=== PATIENT | male | born 1965 | race Caucasian/White ===

== ENCOUNTER 2018-01-03 15:27 | Emergency (ER) | payer SELFPAY ==
[~2018-01-03] VITALS: Ht 185.4 cm; Wt 64.0 kg
[2018-01-03 15:38] VITALS: BP 135/98; PULSE 96; RESP 21; TEMP 98.4; O2SAT 98
[2018-01-03] MEDS ORDERED: NAPR500 PO (15:48)
[2018-01-03] MEDS ORDERED: ACYC800T PO (15:48)
--- NOTE | 2018-01-03 15:51 | PD ---
HPI Chief Complaint: Skin Problem Time Seen by Provider: 15:46 Travel History International Travel<30 days: No Contact w/Intl Traveler<30days: No Traveled to known affect area: No History of Present Illness HPI Patient comes to the emergency department plan of a burning painful rash that began 5 days ago on his chest and back. Patient reports rash started off a small bumps and scabs over. Patient reports subjective fevers. Denies anything making symptoms better or worse. Patient denies doing anything for this prior to the emergency department. Denies ever having similar rash. Denies being or anyone with similar. Severity mild. PFSH Past Medical History Medical History: Denies Significant Hx Social History Tobacco Use: No Substance Use: No Allergies-Medications (Allergen,Severity, Reaction): Coded Allergies: Penicillins (Verified Allergy, Severe, hives, 01/03/18) Reported Meds & Prescriptions Reported Meds & Active Scripts Active Naprosyn (Naproxen) 500 Mg Tab 500 Mg PO Q12HR PRN 7 Days Acyclovir 800 Mg Tab 800 Mg PO 5 TIMES A DAY 7 Days Review of Systems Except as stated in HPI: all other systems reviewed are Neg Physical Exam Narrative GENERAL: Well-developed, well nourished, in no acute distress, and non-ill appearing. SKIN: Patient has rash consistent with shingles over the right upper thoracic cavity dermatomes T3 and T4. No signs of secondary infection. Rash does not cross the midline. HEAD: Atraumatic. Normocephalic. EYES: Pupils equal and round. EOMI. No scleral icterus. No injection or drainage. ENT: No nasal bleeding or discharge. Mucous membranes pink and moist. NECK: Trachea midline. Supple. No nuclear rigidity. RESPIRATORY: No accessory muscle use. No respiratory distress. MUSCULOSKELETAL: No obvious deformities. No clubbing. No cyanosis. No edema. Full range of motion. NEUROLOGICAL: Awake and alert. No obvious cranial nerve deficits. Motor grossly within normal limits. Normal speech. PSYCHIATRIC: Appropriate mood and affect; insight and judgment normal. Data Data Last Documented VS Vital Signs Date Time Temp Pulse Resp B/P (MAP) Pulse Ox O2 Delivery O2 Flow Rate FiO2 01/03/18 15:38 98.4 96 21 135/98 (110) 98 Orders Orders Ed Discharge Order (01/03/18 15:48) [facility] Medical Decision Making Medical Screen Exam Complete: Yes Emergency Medical Condition: Yes Differential Diagnosis Shingles, cellulitis, impetigo Narrative Course Patient in no obvious distress upon re-evaluation. Patient was asked if they wanted to speak to my attending, which the patient did not wish to do at this time. Any questions/concerns in reference to patient diagnosis/condition discussed and clarified prior to patient's discharge. Reinforced sheer importance of close follow up with patient's primary physician or primary care clinic. Instructed patient to return to ED immediately, if symptoms return/ worsen. Patient showed understanding of above instructions. Further instructions and recommendations were detailed in discharge paperwork. Patient ambulated without difficulty out of ED at discharge. Diagnosis Primary Impression: Shingles Qualified Codes: B02.9 - Zoster without complications Referrals: [facility] Patient Instructions: General Instructions, Shingles (ED) Additional Instructions: Follow-up with your primary care physician in 3-5 days for evaluation. Take all medication as prescribed. Use [id number] calamine lotion for symptomatic relief as needed. Follow instructions on the packaging. Return to the emergency department if symptoms get worse. Med/Other Pt SpecificInfo: Prescription(s) given Scripts Naproxen (Naprosyn) 500 Mg Tab 500 MG PO Q12HR Y for PAIN SCALE 1 TO 10 for 7 Days, #14 TAB 0 Refills Prov: Fabricio Degroot MD 01/03/18 Acyclovir (Acyclovir) 800 Mg Tab 800 MG PO 5 TIMES A DAY for Mgmt Viral Infection for 7 Days, TAB 0 Refills Prov: Fabricio Degroot MD 01/03/18 Disposition: 01 DISCHARGE HOME Condition: Stable Edison Reynoso January 03, 2018 15:51
== END 2018-01-03 16:08 | disposition home or self-care (01) ==
LOC: NEPK 15:27
DX: B02.9 Zoster without complications (principal)
CPT/HCPCS: 99283